=== PATIENT | male | born 1990 | race African-American/Black ===

== ENCOUNTER 2019-08-25 13:16 | Emergency (ER) | payer OTHER, SELFPAY ==
--- NOTE | ~2019-08-25 | XR_ITS ---
EXAMINATION: XR wrist LT min 3V EXAM DATE: 08/25/2019 14:05 INDICATION: No known recent injury provided at this time. Pain of the left wrist. TECHNIQUE: Frontal, oblique and lateral projections of the left wrist. There is no prior study for comparison. FINDINGS: There is acute closed posttraumatic nondisplaced fracture through the mid waist of the sca phoid. Scapholunate joint space is maintained. No other suspicious findings. IMPRESSION: Left scaphoid waist fracture. Reviewed, dictated and finalized at location A.
[2019-08-25 13:24] VITALS: BP 163/92; PULSE 93; RESP 18; TEMP 36.7; O2SAT 99
--- NOTE | 2019-08-25 14:27 | WC.ED.TRAUMA ---
HPI - Trauma General Chief Complaint: Extremity Injury, Upper <Michael Mendez PA-C - Last Filed: 08/25/19 14:34> Stated Complaint: L wrist injury <Michael Mendez PA-C - Last Filed: 08/25/19 14:34> Time Seen by Provider: 08/25/19 13:20 <Michael Mendez PA-C - Last Filed: 08/25/19 14:34> Source: patient <Michael Mendez PA-C - Last Filed: 08/25/19 14:34> Mode of arrival: ambulatory <Michael Mendez PA-C - Last Filed: 08/25/19 14:34> Limitations: no limitations <Michael Mendez PA-C - Last Filed: 08/25/19 14:34> History of Present Illness HPI narrative: Patient is a 29-year-old male who presents to emergency department for evaluation of left wrist injury that occurred 2 days ago when he fell onto an outstretched wrist denies other injuries or complaints notes aching pain worse with activity and movement patient notes swelling and tenderness throughout the joint that radiates down the arm patient has not been seen for this complaint and on arrival is in the room in no distress <Michael Mendez PA-C - Last Filed: 08/25/19 14:34> Related Data Home Medications: Home Medications Medication Instructions Recorded Confirmed No Home Medications 08/25/19 08/25/19 <Michael Mendez PA-C - Last Filed: 08/25/19 14:34> Allergies/Adverse Reactions: Allergies Allergy/AdvReac Type Severity Reaction Status Date / Time Penicillins Allergy Unknown Verified 08/25/19 13:30 <Michael Mendez PA-C - Last Filed: 08/25/19 14:34> Review of Systems Review of Systems: All systems reviewed & are unremarkable except as noted in HPI and below <Michael Mendez PA-C - Last Filed: 08/25/19 14:34> [facility] Social History Social History: Social History (Updated 08/25/19 @ 14:29 by Michael Mendez PA-C) Smoking status: Current every day smoker Gender identity (if verbalized by the patient): Male <Michael Mendez PA-C - Last Filed: 08/25/19 14:34> Exam Narrative: Exam Narrative: GENERAL: Well-appearing, well-nourished, and in no acute distress. HEAD: Normocephalic, atraumatic. EYES: PERRLA and EOMI. ENT: Nares clear, no rhinorrhea or epistaxis. Mucous membranes moist. EXTREMITIES: swelling and tenderness of the left wrist joint with bruising SKIN: Warm, dry, no rash. NEURO: No focal deficits. Alert and oriented x3. Neurovascularly intact PSYCH: Normal mood and affect. <PAM Fernandez Last Filed: 08/25/19 14:34> Course REED [facility] [employer]/PA Physician Supervision patient in the room aware of case findings treatment plan and diagnosis <PAM Fernandez Last Filed: 08/25/19 14:34> Consultations Consultation #1: Discussed case with orthopedic surgery who will follow patient in clinic <PAM Fernandez Last Filed: 08/25/19 14:34> Date: 08/25/19 <PAM Fernandez Last Filed: 08/25/19 14:34> Time: 14:32 <PAM Fernandez Last Filed: 08/25/19 14:34> Vital Signs Vital signs: Vital Signs Temperature 36.7 C 08/25/19 13:24 Pulse Rate 93 08/25/19 13:24 Respiratory Rate 18 08/25/19 13:24 Blood Pressure 163/92 H 08/25/19 13:24 Pulse Oximetry 99 08/25/19 13:24 Temperature 36.7 C 08/25/19 13:24 Pulse Rate 93 08/25/19 13:24 Respiratory Rate 18 08/25/19 13:24 Blood Pressure 163/92 H 08/25/19 13:24 Pulse Oximetry 99 08/25/19 13:24 <PAM Fernandez Last Filed: 08/25/19 14:34> Vital Signs Temperature 36.7 C 08/25/19 13:24 Pulse Rate 93 08/25/19 13:24 Respiratory Rate 18 08/25/19 13:24 Blood Pressure 163/92 H 08/25/19 13:24 Pulse Oximetry 99 08/25/19 13:24 Temperature 36.7 C 08/25/19 13:24 Pulse Rate 93 08/25/19 13:24 Respiratory Rate 18 08/25/19 13:24 Blood Pressure 163/92 H 08/25/19 13:24 Pulse Oximetry 99 08/25/19 13:24 <Genie Chau MD - Last Filed: 08/25/19 16:30> MDM - Trauma MDM Narrative Medical decision
[2019-08-25] MEDS: IBUPROFEN 600 MG TABLET PO (14:58)
== END 2019-08-25 15:08 | disposition home or self-care (01) ==
PROVIDERS: Emergency Provider Emergency Medicine
DX: S62.025A Nondisplaced fracture of middle third of navicular [scaphoid] bone of left wrist, initial encounter for closed fracture (principal); F17.200 Nicotine dependence, unspecified, uncomplicated
CPT/HCPCS: 29125; 73110; 99284; A4565; A9270